=== PATIENT | female | born 1950 | race Caucasian/White ===

== ENCOUNTER 2019-06-07 05:12 | Observation (INO) | payer OTHER ==
[~2019-06-07] VITALS: Ht 162.6 cm; Wt 59.1 kg
[2019-06-07 05:36] LABS: BASOPHILS % (AUTO) 0.5 % (0.0-5.0); EOSINOPHILS % (AUTO) 6.8 % (0.0-8.0); HEMATOCRIT 39.7 % (36-48); MEAN CORPUSCULAR HGB CONC 32.7 g/dL (32.0-36.0); MEAN CORPUSCULAR VOLUME 94.7 fL (79-99); MONOCYTES % (AUTO) 9.9 % (3.0-13.0); NEUTROPHILS % (AUTO) 36.5 % (40.0-77.0); PLATELET COUNT (AUTO) 246 K/uL (130-400); RED BLOOD CELL COUNT(AUTO) 4.19 MIL/uL (4.00-5.50); RED CELL DISTRIBUTION WIDTH 12.8 % (11.0-15.5); WHITE BLOOD COUNT (AUTO) 3.7 K/uL (4.8-10.8)
[2019-06-07 05:44] LABS: CREATININE 0.6 mg/dL (0.5-1.5)
[2019-06-07 05:47] LABS: INR 0.94 (0.85-1.15); PARTIAL THROMBOPLASTIN TIME 25.4 SEC (26.3-35.5); PROTHROMBIN TIME 9.9 SEC (9.6-11.6)
[2019-06-07 05:51] LABS: ALBUMIN 3.9 g/dL (3.5-5.0); BILIRUBIN,TOTAL 0.8 mg/dL (0.2-1.0); TOTAL PROTEIN, SERUM 7.1 g/dL (6.0-8.3)
[2019-06-07 06:16] LABS: ABG BASE EXCESS -0.3 mmol/L (-2.0-3.0); ABG OXYGEN SATURATION 94.6 % (95.0-99.0); ABG PCO2 44 mmHg (32-45)
[2019-06-07 07:35] LABS: APPEARANCE,URINE Clear (CLEAR); BILIRUBIN,URINE Negative (NEGATIVE); COLOR,URINE Yellow (YELLOW); GLUCOSE, URINE (UA) Negative (NEGATIVE); KETONES,URINE Negative (NEGATIVE); LEUKOCYTE ESTERASE ,URINE Negative (NEGATIVE); NITRATE,URINE Negative (NEGATIVE); OCCULT BLOOD,URINE Negative (NEGATIVE); PH,URINE 5.5 (5.0-8.0); PROTEIN,URINE Negative (NEGATIVE); UROBILINOGEN,URINE 0.2 mg/dL (0.2-1.0)
[2019-06-07 07:43] LABS: AMPHET/METH SCREEN,URINE NEGATIVE (NEGATIVE); BARBITURATE SCREEN, URINE NEGATIVE (NEGATIVE); BENZODIAZEPINES SCREEN,URINE NEGATIVE (NEGATIVE); CANNABINOID SCREEN,URINE NEGATIVE (NEGATIVE); COCAINE SCREEN,URINE NEGATIVE (NEGATIVE); OPIATE SCREEN,URINE NEGATIVE (NEGATIVE); PHENCYCLIDINE SCREEN,URINE NEGATIVE (NEGATIVE)
[2019-06-07] MEDS ORDERED: ONDANSETRON HCL 4 MG/2 ML VIAL IVP PRN (08:15)
[2019-06-07] MEDS ORDERED: ACETAMINOPHEN 325 MG TAB PO PRN ×3 (08:15→12:45)
[2019-06-07] MEDS: CLOPIDOGREL BISULFATE 300 MG TAB PO SCH (09:00)
[2019-06-07] MEDS: ASPIRIN 81 MG EC TAB PO SCH (09:00)
[2019-06-07] MEDS ORDERED: GADODIAMIDE 10 MMOL/20 ML VIAL IV ONE (09:33)
[2019-06-07] MEDS ORDERED: ASPIRIN 81MG TAB.CHEW ONE (10:27)
[2019-06-07] MEDS ORDERED: CLOPIDOGREL BISULFATE 75 MG TAB ONE (10:27)
[2019-06-07] MEDS ORDERED: ATORVASTATIN CALCIUM 20 MG TABLET ONE (10:29)
[2019-06-07] MEDS ORDERED: LACTULOSE 20 GM/30 ML UDCUP PO PRN (12:45)
[2019-06-07] MEDS ORDERED: NITROGLYCERIN 0.4 MG SL TAB SL PRN (12:45)
[2019-06-07] MEDS ORDERED: ONDANSETRON HCL 4 MG/2 ML VIAL IV PRN (12:45)
[2019-06-07 20:52] LABS: AMMONIA 23 umol/L (11-32)
[2019-06-07] MEDS: FAMOTIDINE 20MG TAB 20 MG TAB PO SCH (21:00)
[2019-06-07] MEDS: ATORVASTATIN CALCIUM 40 MG TABLET PO SCH (21:00)
[2019-06-07 21:16] LABS: THYROID STIMULATING HORMONE 2.86 uIU/mL (0.36-3.74)
[2019-06-07] MEDS ORDERED: FAMOTIDINE 20MG TAB 20 MG TAB ONE (22:21)
[2019-06-08 04:35] LABS: BASOPHILS % (AUTO) 0.4 % (0.0-5.0); EOSINOPHILS % (AUTO) 3.9 % (0.0-8.0); HEMATOCRIT 39.1 % (36-48); LYMPHOCYTES % (AUTO) 35.3 % (21.0-51.0); MEAN CORPUSCULAR HEMOGLOBIN 31.4 pg (27.0-33.0); MEAN CORPUSCULAR VOLUME 95.1 fL (79-99); MONOCYTES % (AUTO) 13.1 % (3.0-13.0); NEUTROPHILS % (AUTO) 46.9 % (40.0-77.0); PLATELET COUNT (AUTO) 251 K/uL (130-400); RED BLOOD CELL COUNT(AUTO) 4.11 MIL/uL (4.00-5.50); RED CELL DISTRIBUTION WIDTH 13.1 % (11.0-15.5); WHITE BLOOD COUNT (AUTO) 4.6 K/uL (4.8-10.8)
[2019-06-08 04:57] LABS: ALBUMIN 3.5 g/dL (3.5-5.0); BILIRUBIN,TOTAL 1.2 mg/dL (0.2-1.0); CREATININE 0.7 mg/dL (0.5-1.5); POTASSIUM 4.1 mmol/L (3.5-5.1); TOTAL PROTEIN, SERUM 6.8 g/dL (6.0-8.3)
[2019-06-08] MEDS ORDERED: ASPIRIN 81MG TAB.CHEW ONE (08:26)
[2019-06-08] MEDS ORDERED: ATORVASTATIN CALCIUM 20 MG TABLET ONE (08:27)
[2019-06-08] MEDS ORDERED: CLOPIDOGREL BISULFATE 75 MG TAB ONE (08:27)
[2019-06-08] MEDS ORDERED: FAMOTIDINE 20MG TAB 20 MG TAB ONE (08:27)
[2019-06-08] MEDS: CLOPIDOGREL BISULFATE 300 MG TAB PO SCH (09:00)
[2019-06-08] MEDS: FAMOTIDINE 20MG TAB 20 MG TAB PO SCH ×2 (09:00→20:42)
[2019-06-08] MEDS: ASPIRIN 81 MG EC TAB PO SCH (09:00)
[2019-06-08 10:55] VITALS: BP 120/70
--- NOTE | 2019-06-08 12:00 | NUR ---
NOTE ARRIVED FROM ER EARLIER AND SOONAS SHE CAME IN SHE WENT FOR MRA HEAD AND NECK ORDERED PER DR HOUSTON. SHE IS ALSO PENDING 2D ECHO. I WILL DO BEDSIDE SWALLOW EVALUATION WHEN SHE COME BACK. SHE APPEARS TO BE STABLE. NO NEURO DEFICITS NOTED AND NO NUMBNESS OR TINGLING. NO SLURRED SPEECH OR FACIAL DROOP. STATES SHE HAS BEEN EATING IN THE E.R. BUT I DO NOT SEE DOCUMENTATION.
[2019-06-08] MEDS: ATORVASTATIN CALCIUM 40 MG TABLET PO SCH (12:36)
--- NOTE | 2019-06-08 13:00 | NUR ---
NOTE BEDSIDE EVALUATION DONE. SHE DID WELL. NO DEFICITS NOTED. WILL NOTIFY DR HOUSTON. TRIED TO GET HOLD OF SAFETY LEADER AND NO LUCK. WILL TRY AGAIN.
--- NOTE | 2019-06-08 15:49 | NUR ---
INITIAL: Met with pt this afternoon to discuss dcp. Pt mentions that she is a [place] from [facility]. She mentions that she is staying in a park model @ [address] [employer] [address] w her spouse. Prior to admission she was independent w ambulation and ADLs. She does not own any DME or receive services. Per pt she is very active and healthy. Pt mentions that she feels safe and comfortable to return home at id. CM to continue to follow and wait for Md recommendations. Addendum: 06/08/19 at 1551 by NIDIA MALDONADO Amended: Links added.
[2019-06-08 16:00] VITALS: BP 139/76
--- NOTE | 2019-06-08 16:00 | NUR ---
NOTE SPOKE TO DR HOUSTON ABOUT PATIENT AND HE SAID SHE DOES NOT NEED THE ECHO. INFORMED HIM ABOUT MRA RESULTS ARE AVAILABLE. HE HAS NOT MADE ROUNDS YET.
--- NOTE | 2019-06-08 17:13 | NUR ---
NOTE PATIENT REMAINS STABLE. NO LOC OR CHANGE IN MENTAL STATUS. PAGED DR HOUSTON TO ASK WHEN HE IS ROUNDING FOR PATIENT IS GETTING ANXIOUS ABOUT IT. Addendum: 06/08/19 at 1714 by EMELYN JOHNSON RN WILL KEEP PATIENT INFORMED
[2019-06-08 20:34] VITALS: BP 131/70
[2019-06-09 00:23] VITALS: BP 135/74
[2019-06-09 04:59] LABS: BASOPHILS % (AUTO) 0.7 % (0.0-5.0); EOSINOPHILS % (AUTO) 4.6 % (0.0-8.0); HEMATOCRIT 40.2 % (36-48); LYMPHOCYTES % (AUTO) 37.6 % (21.0-51.0); MEAN CORPUSCULAR HEMOGLOBIN 31.4 pg (27.0-33.0); MEAN CORPUSCULAR HGB CONC 32.8 g/dL (32.0-36.0); MEAN CORPUSCULAR VOLUME 95.5 fL (79-99); MONOCYTES % (AUTO) 13.2 % (3.0-13.0); NEUTROPHILS % (AUTO) 43.7 % (40.0-77.0); PLATELET COUNT (AUTO) 265 K/uL (130-400); RED BLOOD CELL COUNT(AUTO) 4.21 MIL/uL (4.00-5.50); RED CELL DISTRIBUTION WIDTH 12.7 % (11.0-15.5); WHITE BLOOD COUNT (AUTO) 4.1 K/uL (4.8-10.8)
[2019-06-09 05:29] VITALS: BP 125/69
[2019-06-09 05:36] LABS: ALBUMIN 3.7 g/dL (3.5-5.0); CREATININE 0.6 mg/dL (0.5-1.5); POTASSIUM 4.1 mmol/L (3.5-5.1)
--- NOTE | 2019-06-09 07:50 | NUR ---
NOTE AAOX3. NO NEURO DEFICITS NOTED. NO SEIZURE ACTIVITY REPORTED OVERNIGHT AND TELEMETRY UNEVENTFUL. SHE IS BASICALLY WAITING FOR DR ARGUETA TO MAKE ROUNDS AND CONSULT. SHE HAD TELE NEUROLOGY CONSULT WHEN SHE INITIALLY ARRIVED TO .. SHE HAS REMAINED STABLE SINCE THEN. WAS BROUGHT TO HOSPITAL VIA EMS BECAUSE WOKE UP ROOFER 06/07/19 WHILE SHE SLEPT BECAUSE SHE WAS MAKING NOISES AND THERE WAS A NOTICEABLE CHANGE IN MENTAL STATUS.
[2019-06-09 08:00] VITALS: BP 131/69
--- NOTE | 2019-06-09 11:20 | NUR ---
INSTRUCTIONS DISCHARGE INSTRUCTIONS GIVEN TO PATIENT USING TEACH BACK. IV REMOVED WITH TIP INTACT. DIRECT PRESSURE APPLIED UNTIL BLEEDING CONTROLLED THEN SITE COVERED WITH GAUZE AND SECURED WITH A BAND-AID. NEW PRESCRIPTION ALONG WITH ALL PRINTED INFORMATION AND MD INSTRUCTIONS PLACED IN DISCHARGE PACKET. F/U APPOINTMENT MADE WITH NEUROLOGIST. NO QUESTIONS OR CONCERNS VOICED. PENDING ORDERED MEDICATION TO BE ADMINISTERED AND POST INGESTION MONITORING FOR SIDE EFFECTS BY PRIMARY NURSE.
[2019-06-09] MEDS ORDERED: AEC81 PO (11:28)
[2019-06-09] MEDS ORDERED: LEVE-43 PO (11:28)
[2019-06-09] MEDS ORDERED: LEVETIRACETAM 500 MG TABLET PO SCH (11:30)
[2019-06-09] MEDS: FAMOTIDINE 20MG TAB 20 MG TAB PO SCH (11:57)
[2019-06-09] MEDS: ASPIRIN 81 MG EC TAB PO SCH (11:58)
[2019-06-09] MEDS: CLOPIDOGREL BISULFATE 300 MG TAB PO SCH (11:58)
[2019-06-09 12:00] VITALS: BP 141/75
--- NOTE | 2019-06-09 14:00 | NUR ---
NOTE DISCHARGE INSTRUCTIONS GIVEN PER DC NURSE TORI. INSTRUCTED NOT TO DRIVE AND FOLLOW UP WITH DR ARGUETA OUTPATIENT FOR EEG. REFER TO DC SUMMARY FOR DETAILS.
== END 2019-06-09 13:25 | disposition home or self-care (01) ==
LOC: EDH 05:12 → EDHIP 07:15 → 3DH 06-08 10:21
PROVIDERS: ADMIT Internal Medicine; ATTEND Internal Medicine
DX: G31.9 Degenerative disease of nervous system, unspecified (principal); R56.9 Unspecified convulsions; E78.5 Hyperlipidemia, unspecified; E78.00 Pure hypercholesterolemia, unspecified; Z98.51 Tubal ligation status; Z86.73 Personal history of transient ischemic attack (TIA), and cerebral infarction without residual deficits
CPT/HCPCS: 36415 ×3; 36600; 70450; 70544; 70547; 70553; 71045; 80053 ×3; 80305; 81003; 82140; 82550; 82803; 83721; 84145; 84443; 84484; 85025 ×3; 85610; 85730; 93005; 93880; 97116; 97161; 99284; A9579; G0378 ×18; G0480; G8978; G8979; G8980; G8981; G8982; G8983